=== PATIENT | male | born 1935 | race Caucasian/White ===

== ENCOUNTER 2025-02-24 12:50 | Outpatient (RCR) | payer MEDICARE, SELFPAY | END 2025-03-10 11:29 | disposition EXP | LOC: HO.WCC 12:50 | PROVIDERS: PCP Internal Medicine; Visit Provider Surgery | DX: S50.311A Abrasion of right elbow, initial encounter (principal); S50.01XA Contusion of right elbow, initial encounter; S50.11XA Contusion of right forearm, initial encounter; W18.30XA Fall on same level, unspecified, initial encounter; R60.0 Localized edema; I48.20 Chronic atrial fibrillation, unspecified; I50.32 Chronic diastolic (congestive) heart failure; Z99.81 Dependence on supplemental oxygen; Z79.01 Long term (current) use of anticoagulants | CPT/HCPCS: 11042; 97597; 99203 ==